=== PATIENT | male | born 1960 | race Caucasian/White ===

== ENCOUNTER 2021-11-28 21:48 | Emergency (ER) | payer OTHER ==
[2021-11-28 22:09] VITALS: BP 118/79; PULSE 64; RESP 20; TEMP 99.8; BMI 30.7
[2021-11-29] MEDS ORDERED: ALBUTEROL SO4 HFA INHALER IH ONE ×2 (00:33→00:34)
== END 2021-11-29 00:37 | disposition home or self-care (01) ==
LOC: JER 21:48
DX: U07.1 COVID-19 (principal)
CPT/HCPCS: 71046-TC-FY; 93005; 93010; 99285-25; C9803-CS; U0003; U0005

== ENCOUNTER 2024-03-29 23:30 | Emergency (ER) | payer SELFPAY ==
[2024-03-29 23:49] VITALS: BMI 31.4
[2024-03-30] MEDS ORDERED: ACETAMINOPHEN INJECTION 100 ML ONE (00:26)
[2024-03-30] MEDS ORDERED: KETOROLAC TROMETHAMINE 15 MG/ML VIAL ONE (00:26)
[2024-03-30] MEDS: ACETAMINOPHEN 1000 MG/100 ML BAG IVPB ONE (00:42)
[2024-03-30] MEDS: KETOROLAC TROMETHAMINE 15 MG/ML VIAL IVPUSH ONE (00:42)
[2024-03-30 00:45] LABS: HEMATOCRIT 42.8 % (35.4-49); HEMOGLOBIN 14.4 GM/dL (11.7-16.9); MCHC 33.6 g/dl (32.0-35.9); MEAN CELL VOLUME 95.1 fl (80-96); MEAN PLT VOLUME 7.5 fl (7.5-11.1); PLATELET COUNT 169 10^3/uL (134-434); RDW 13.5 % (11.9-15.9); WHITE BLOOD COUNT 7.2 K/mm3 (4.0-10.0)
[2024-03-30 00:48] LABS: EPI CELLS 5 /uL (0-25.1); HYALINE CASTS 1 /uL (0-3.1); PH,URINE 5.5 (5.0-8.0); URINE APPEARANCE CLEAR; URINE BACTERIA 13 /uL (0-1359); URINE BILIRUBIN NEGATIVE (NEGATIVE); URINE COLOR YELLOW; URINE GLUCOSE (UA) NEGATIVE (NEGATIVE); URINE KETONE NEGATIVE (NEGATIVE); URINE LEUK ESTERASE NEGATIVE (NEGATIVE); URINE NITRITE NEGATIVE (NEGATIVE); URINE PROTEIN 1+ (NEGATIVE); URINE RBC 821 /uL (0-23.9); URINE UROBILINOGEN 0.2 mg/dL (0.2-1.0); URINE WBC 24 /uL (0-25.8)
[2024-03-30 01:48] LABS: POTASSIUM 4.1 mmol/L (3.5-5.1)
[2024-03-30 01:50] LABS: ALBUMIN 3.7 g/dl (3.4-5.0); BLOOD UREA NITROGEN 22.7 mg/dL (7-18); CALCIUM 9.2 mg/dL (8.5-10.1)
[2024-03-30 01:54] LABS: CREATININE 1.2 mg/dL (0.55-1.3)
[2024-03-30 01:55] LABS: BILIRUBIN,TOTAL 0.4 mg/dL (0.2-1); TOT PROT 6.9 g/dl (6.4-8.2)
[2024-03-30 02:21] VITALS: BP 122/76; PULSE 79; RESP 18; TEMP 98.4
== END 2024-03-30 02:21 | disposition home or self-care (01) ==
LOC: JER 23:30
PROC: 3E033NZ Introduction of Analgesics, Hypnotics, Sedatives into Peripheral Vein, Percutaneous Approach (ICD-10-PCS; principal; 2024-03-30)
PROC: 3E0333Z Introduction of Anti-inflammatory into Peripheral Vein, Percutaneous Approach (ICD-10-PCS; 2024-03-30)
DX: N20.0 Calculus of kidney (principal); R10.32 Left lower quadrant pain; M54.9 Dorsalgia, unspecified
CPT/HCPCS: 36415; 80053; 81003; 85027; 87086; 99284-25; J0131

== ENCOUNTER 2024-04-02 01:28 | Day surgery (SDC) | payer OTHER ==
[2024-04-02] MEDS ORDERED: morphine SULFATE 4 MG/ML VIAL ONE ×2 (02:06→04:37)
[2024-04-02] MEDS ORDERED: KETOROLAC TROMETHAMINE 15 MG/ML VIAL ONE ×2 (02:24→04:38)
[2024-04-02 02:32] LABS: BASO % 0.3 % (0-2.0); EOS % 2.1 % (0-4.5); HEMATOCRIT 43.6 % (35.4-49); LYMPH % 56.7 % (8-40); MCH 32.7 pg (25.7-33.7); MCHC 34.3 g/dl (32.0-35.9); MEAN CELL VOLUME 95.4 fl (80-96); MEAN PLT VOLUME 7.6 fl (7.5-11.1); MONO % 10.9 % (3.8-10.2); PLATELET COUNT 183 10^3/uL (134-434); RBC 4.58 M/mm3 (4.00-5.60); RDW 13.4 % (11.9-15.9); WHITE BLOOD COUNT 6.8 K/mm3 (4.0-10.0)
[2024-04-02] MEDS: morphine CARPU-JECT 4 MG/1 ML DISP.SYRIN IVPUSH ONE ×2 (02:34→04:50)
[2024-04-02] MEDS: SODIUM CHLORIDE 0.9% 500 ML INFUS.BAG IV ONE (02:35)
[2024-04-02] MEDS: KETOROLAC TROMETHAMINE 15 MG/ML VIAL IVPUSH ONE ×2 (02:35→04:50)
[2024-04-02 02:40] LABS: INR 0.99 (0.83-1.09); PROTHROMBIN TIME (PATIENT) 11.4 SEC (9.7-13.0)
[2024-04-02 02:42] LABS: ACTIVATED PTT 28.6 SECONDS (25.2-36.5)
[2024-04-02 02:58] LABS: POTASSIUM 3.6 mmol/L (3.5-5.1)
[2024-04-02 03:01] LABS: ALBUMIN 3.8 g/dl (3.4-5.0); BLOOD UREA NITROGEN 20.7 mg/dL (7-18)
[2024-04-02 03:04] LABS: CREATININE 1.1 mg/dL (0.55-1.3)
[2024-04-02 03:05] LABS: BILIRUBIN,TOTAL 0.4 mg/dL (0.2-1)
[2024-04-02 03:06] LABS: TOT PROT 7.4 g/dl (6.4-8.2)
[2024-04-02] MEDS ORDERED: TAMSULOSIN HCL 0.4 MG CAP ONE ×2 (03:40→10:18)
[2024-04-02] MEDS: TAMSULOSIN HCL 0.4 MG CAP PO ONE (03:44)
[2024-04-02] MEDS ORDERED: ACETAMINOPHEN INJECTION 100 ML ONE (04:38)
[2024-04-02] MEDS: ACETAMINOPHEN 1000 MG/100 ML BAG IVPB ONE (04:50)
[2024-04-02 05:23] LABS: EPI CELLS 2 /uL (0-25.1); HYALINE CASTS 0 /uL (0-3.1); PH,URINE 5.5 (5.0-8.0); URINE APPEARANCE CLEAR; URINE BACTERIA 3 /uL (0-1359); URINE BILIRUBIN NEGATIVE (NEGATIVE); URINE COLOR YELLOW; URINE GLUCOSE (UA) NEGATIVE (NEGATIVE); URINE KETONE NEGATIVE (NEGATIVE); URINE LEUK ESTERASE NEGATIVE (NEGATIVE); URINE NITRITE NEGATIVE (NEGATIVE); URINE PROTEIN NEGATIVE (NEGATIVE); URINE RBC 19 /uL (0-23.9); URINE UROBILINOGEN 0.2 mg/dL (0.2-1.0); URINE WBC 2 /uL (0-25.8)
[2024-04-02] MEDS ORDERED: ACETAMINOPHEN 1000 MG/100 ML BAG IVPB PRN ×2 (08:08→15:26)
[2024-04-02] MEDS ORDERED: morphine SULFATE 4 MG/ML VIAL IVPUSH PRN ×2 (08:09→15:26)
[2024-04-02] MEDS ORDERED: CEFTRIAXONE 1 G/50 ML PREMIX 50 ML IVPB ONE (08:19)
[2024-04-02] MEDS: CEFTRIAXONE 1,000 MG in DEXTROSE 5%-WATER - 50 ML IVPB ONE (08:36)
[2024-04-02] MEDS: LACTATED RINGERS SOLUTION 1,000 ML/1,000 ML INFUS.BAG IV SCH ×2 (09:40→16:00)
[2024-04-02] MEDS ORDERED: amLODIPine BESYLATE 5 MG TABLET (FP) ONE (10:17)
[2024-04-02] MEDS: TAMSULOSIN HCL 0.4 MG CAP PO SCH (10:40)
[2024-04-02] MEDS: amLODIPine BESYLATE 5 MG TABLET (FP) PO SCH (10:40)
[2024-04-02] MEDS ORDERED: LACTATED RINGERS SOLUTION 1,000 ML IV SCH ×2 (13:30→15:26)
[2024-04-02] MEDS ORDERED: FENTANYL CITRATE/PF 50 MCG/ML VIAL IVPUSH PRN ×2 (13:33→15:26)
[2024-04-02] MEDS ORDERED: PROPOFOL 20 ML ONE ×2 (13:56→14:01)
[2024-04-02] MEDS ORDERED: MIDAZOLAM HCL 2 MG/2 ML SINGLE DOSE VIAL ONE (13:57)
[2024-04-02 18:38] VITALS: BMI 34.3
[2024-04-02] MEDS: KETOROLAC TROMETHAMINE 15 MG/ML VIAL IVPUSH SCH (21:07)
[2024-04-03] MEDS: HYDROCHLOROTHIAZIDE 25 MG TABLET (FP) PO SCH ×2 (01:18→09:40)
[2024-04-03] MEDS: KETOROLAC TROMETHAMINE 15 MG/ML VIAL IVPUSH SCH (01:18)
[2024-04-03] MEDS ORDERED: SODIUM CHLORIDE 500 ML IV STA (02:45)
[2024-04-03 07:09] VITALS: RESP 18
[2024-04-03 09:08] LABS: HEMATOCRIT 39.7 % (35.4-49); HEMOGLOBIN 13.5 GM/dL (11.7-16.9); MCH 32.5 pg (25.7-33.7); MCHC 34.1 g/dl (32.0-35.9); MEAN CELL VOLUME 95.4 fl (80-96); MEAN PLT VOLUME 8.2 fl (7.5-11.1); PLATELET COUNT 173 10^3/uL (134-434); RBC 4.16 M/mm3 (4.00-5.60); RDW 13.8 % (11.9-15.9); WHITE BLOOD COUNT 10.7 K/mm3 (4.0-10.0)
[2024-04-03 09:14] LABS: POTASSIUM 3.7 mmol/L (3.5-5.1)
[2024-04-03 09:18] LABS: MAGNESIUM 1.9 mg/dL (1.8-2.4)
[2024-04-03 09:22] LABS: PHOSPHOROUS 2.4 mg/dL (2.5-4.9)
[2024-04-03] MEDS: TAMSULOSIN HCL 0.4 MG CAP PO SCH (09:40)
[2024-04-03] MEDS: amLODIPine BESYLATE 5 MG TABLET (FP) PO SCH (09:40)
[2024-04-03] MEDS: CEFTRIAXONE 1 G/50 ML PREMIX 50 ML IVPB SCH (09:40)
[2024-04-03] MEDS ORDERED: CEFTRIAXONE 1 G/50 ML PREMIX 50 ML IVPB SCH (10:00)
[2024-04-03 15:04] VITALS: BP 134/86; PULSE 87; TEMP 97.9
== END 2024-04-03 17:40 | disposition home or self-care (01) ==
LOC: JER 01:28 → JERBED 05:25 → UNDOADMIN 05:25 → SUATTDRO 13:52 → JASUSAT 13:52 → J5S 17:11 → JASUSAT 04-03 17:40
PROC: 3E033NZ Introduction of Analgesics, Hypnotics, Sedatives into Peripheral Vein, Percutaneous Approach (ICD-10-PCS; 2024-04-02)
PROC: 3E033NZ Introduction of Analgesics, Hypnotics, Sedatives into Peripheral Vein, Percutaneous Approach (ICD-10-PCS; 2024-04-02)
PROC: 3E03329 Introduction of Other Anti-infective into Peripheral Vein, Percutaneous Approach (ICD-10-PCS; principal; 2024-04-02 14:00)
PROC: 3E033NZ Introduction of Analgesics, Hypnotics, Sedatives into Peripheral Vein, Percutaneous Approach (ICD-10-PCS; 2024-04-02 14:00)
PROC: 3E0333Z Introduction of Anti-inflammatory into Peripheral Vein, Percutaneous Approach (ICD-10-PCS; 2024-04-02 14:00)
PROC: 3E0333Z Introduction of Anti-inflammatory into Peripheral Vein, Percutaneous Approach (ICD-10-PCS; 2024-04-02 14:00)
DX: N13.2 Hydronephrosis with renal and ureteral calculous obstruction (principal); R10.32 Left lower quadrant pain
CPT/HCPCS: 36415; 74176-TC; 76000-TC-FY; 80048; 80053; 81003; 83735; 84100; 85025; 85027; 85610; 85730; 86850; 86900; 86901; 87086; 93005; 93010; 94760; 99285-25; C1747; C1758; C2617; J0131